=== PATIENT | male | born 1990 | race Caucasian/White ===

== ENCOUNTER 2017-12-20 13:53 | Emergency (ER) | payer OTHER ==
--- NOTE | 2017-12-20 14:32 | RAD REPORT ---
EXAM DESCRIPTION: Neema Single View12/20/2017 2:04 pm CLINICAL HISTORY: Chest pain COMPARISON: September 2016 FINDINGS: The lungs appear clear of acute infiltrate. The heart is normal size IMPRESSION: No acute abnormalities displayed
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
== END 2017-12-20 16:24 | disposition home or self-care (01) ==
LOC: ER 13:53
DX: S09.90XA Unspecified injury of head, initial encounter (principal); V48.5XXA Car driver injured in noncollision transport accident in traffic accident, initial encounter; F17.210 Nicotine dependence, cigarettes, uncomplicated; Z88.8 Allergy status to other drugs, medicaments and biological substances; I10 Essential (primary) hypertension
CPT/HCPCS: 70450; 71045; 72125; 99285

== ENCOUNTER 2021-04-14 13:05 | Emergency (ER) | payer SELFPAY ==
[2021-04-14] MEDS ORDERED: NA CHLORIDE 0.9% 1,000 ML ONE (13:47)
[2021-04-14 14:08] LABS: Absolute Lymphocytes (CBC) 0.6 K/uL (0.7-4.9); Basophils % 0.3 % (0-1.3); Hematocrit 40.6 % (39.6-49.0); Lymphocytes % 6.1 % (15.3-44.8); MPV 7.2 fL (7.6-11.3); RBC Red Blood Cell Count 4.68 M/uL (4.33-5.43)
--- NOTE | 2021-04-14 14:13 | RAD REPORT ---
EXAM DESCRIPTION: CT - Head Brain Wo Cont - 04/14/2021 1:57 pm CLINICAL HISTORY: Left arm weakness COMPARISON: None TECHNIQUE: Computed axial tomography of the head was obtained. IV contrast was not requested. All CT scans are performed using dose optimization technique as appropriate and may include automated exposure control or mA/KV adjustment according to patient size. FINDINGS: An intracranial bleed is not seen . The ventricles are normal in caliber. No extra-axial fluid collection is noted. Fluid within the sinuses/ mastoids is not seen. IMPRESSION: No acute intracranial abnormality is seen. If patient's symptoms persist MRI of the bra in would be recommended.
[2021-04-14 14:18] LABS: Albumin 3.2 g/dL (3.4-5.0); Bilirubin Direct 0.1 mg/dL (0-0.2); Bilirubin Total 0.3 mg/dL (0.2-1.0); Protein, Total 6.7 g/dL (6.4-8.2)
[2021-04-14 14:53] LABS: Blood Morphology Comment NOT SEEN (NOT SEEN); Platelet Estimate ADEQ
--- NOTE | 2021-04-14 15:57 | RAD REPORT ---
EXAM DESCRIPTION: USExtremity Venous Uni Ltd04/14/2021 3:07 pm CLINICAL HISTORY: Left arm swelling COMPARISON: None FINDINGS: The left internal jugular, left subclavian, left cephalic, left axillary, left brachial, l eft basilic, left ulnar and left radial veins are generally compressible and demonstrate augmentation . Doppler demonstrates good flow. IMPRESSION: No evidence of thrombus within the veins of the left upper extremity
--- NOTE | 2021-04-14 16:04 | ER ---
Nurse's Notes [facility] Name: Angelo Eden Age: 31 yrs Sex: Male : 1990 Arrival Date: 04/14/2021 Time: 13:07 Bed 3 Private MD: Diagnosis: Pain in left arm;Drug abuse counseling and surveillance Presentation: 04/14 13:10 Chief complaint: Patient states: i did H (Heroin) last night. i woke up a little over tw2 an hour ago and i thought my LEFT arm was asleep. but it will not wake up and i have no motor control over it. Coronavirus screen: At this time, the client does not indicate any symptoms associated with coronavirus-19. Ebola Screen: Patient denies travel to an Ebola-affected area in the 21 days before illness onset. Initial Sepsis Screen: Does the patient meet any 2 criteria? HR > 90 bpm. No. Patient's initial sepsis screen is negative. Does the patient have a suspected source of infection? No. Patient's initial sepsis screen is negative. Risk Assessment: Do you want to hurt yourself or someone else? Patient reports no desire to harm self or others. Onset of symptoms was April 14, 2021. 13:10 Method Of Arrival: Wheelchair tw2 13:10 Acuity: CANDACE 3 tw2 Triage Assessment: 13:20 General: Appears unkempt, Behavior is calm, cooperative. General: Smells of feces. pt tw2 has soiled himself.. Pain: Denies pain. Neuro: Reports numbness weakness in left arm since over an hour ago. Historical: - Allergies: 13:21 Ceclor; tw2 - Home Meds: 13:21 None [Active]; tw2 - PMHx: 13:21 Hypertension; tw2 - Immunization history:: Client reports having NOT received the Covid vaccine. - Social history:: Smoking status: Patient denies any tobacco usage or history of. Patient uses street drugs, heroin. Screenin:45 Patient has been NPO before screening. The patient is alert, able to follow commands. jd3 The patient does not exhibit slurred or garbled speech The patient is not exhibiting difficulty speaking. The patient does not exhibit difficulty understanding words. The patient is able to swallow own secretions with no drooling or need for suction. Patient tolerated one teaspoon of water. No drooling, immediate coughing, gurgling, or clearing of the throat was noted. The patient tolerated 90mL of water. No drooling, immediate coughing, gurgling, or clearing of the throat was noted. The patient passed the bedside swallow screening. Oral medications may be given as ordered. Contact Physician for further diet orders. Provider notified of bedside swallow screening results: Sheila Haines MD. 13:47 Abuse screen: Denies threats or abuse. Nutritional screening: No deficits noted. jd3 Tuberculosis screening: No symptoms or risk factors identified. Fall Risk Ambulatory Aid- None/Bed Rest/Nurse Assist (0 pts). Gait- Normal/Bed Rest/Wheelchair (0 pts) Mental Status- Oriented to own ability (0 pts). Total Buck Fall Scale indicates No Risk (0-24 pts). 13:49 VAN Screening: Arm Drift: Minor drift. Visual Disturbance: No visual disturbance noted. jd3 Aphasia: No aphasia noted. Neglect: No neglect noted. Assessment: 13:39 General: Reports "I woke up and I had no motor control of my left hand and little jd3 control of my left arm. my left leg feels like it doesn't work as well. I did some drugs last night and I don't know what happened before falling asleep.". Pain: Complains of pain in left shoulder Quality of pain is described as aching, tender. Neuro: Level of Consciousness is awake, alert, obeys commands, Oriented to person, place, time, situation, Breakdown Person are weak on left Weakness in left hand(s) arm(s) Speech is normal, Facial symmetry appears normal, Pupils are PERRLA, Reports weakness in left hand, left arm and left leg. Cardiovascular: Denies chest pain, Capillary refill < 3 seconds Patient's skin is warm and dry. Rhythm is sinus tachycardia. Respiratory: Airway is patent Respiratory effort is even, unlabored, Respiratory pattern is regular, symmetrical, Denies cough, shortness of breath. GI: No signs and/or symptoms were reported involving the gastrointestinal system. : No signs and/or symptoms were reported regarding the genitourinary system. EENT: No signs and/or symptoms were reported regarding the EENT system. Derm: Skin is intact, Skin is dry, Skin is normal, Skin temperature is warm. Musculoskeletal: Circulation, motion, and sensation intact. Range of motion: limited in left arm Swelling present in left hand. 14:50 Reassessment: No changes from previously documented assessment. Patient and/or family jd3 updated on plan of care and expected duration. Pain level reassessed. Patient is alert, oriented x 3, equal unlabored respirations, skin warm/dry/pink. 16:03 Reassessment: Patient appears in no apparent distress at this time. No changes from jd3 previously documented assessment. Patient and/or family updated on plan of care and expected duration. Pain level reassessed. Patient is alert, oriented x 3, equal unlabored respirations, skin warm/dry/pink. pt reports continued lac of motor control of left arm/hand. 16:20 Reassessment: Patient appears in no apparent distress at this time. Patient and/or jd3 family updated on plan of care and expected duration. Pain level reassessed. Patient is alert, oriented x 3, equal unlabored respirations, skin warm/dry/pink. pt reported understanding of discharge instructions. assisted pt to lobby with wheelchair to wait for ride. Vital Signs: 13:10 BP 129 / 83; Pulse 120; Resp 17; Temp 99.3(TE); Pulse Ox 92% on R/A; Weight 74.84 kg tw2 (R); Height 5 ft. 10 in. (177.80 cm); 14:50 BP 125 / 82; Pulse 105; Resp 15 S; Pulse Ox 97% on R/A; jd3 16:04 BP 120 / 78; Pulse 111; Resp 19 S; Pulse Ox 99% on R/A; jd3 13:10 Body Mass Index 23.67 (74.84 kg, 177.80 cm) tw2 13:10 pt placed on 2L nc will continue to monitor tw2 NIH Stroke Scale Scores: 13:45 NIHSS Score: 2 jd3 ED Course: 13:07 Patient arrived in ED. mr 13:20 Triage completed. tw2 13:20 Arm band placed on. tw2 13:23 Sheila Haines MD is Attending Physician. sp3 13:25 Cleveland Wells RN is Primary Nurse. jd3 13:47 Patient has correct armband on for positive identification. Placed in gown. Bed in low jd3 position. Call light in reach. Side rails up X2. desk monitor on. Pulse ox on. NIBP on. Warm blanket given. 13:52 Inserted saline lock: 20 gauge in left antecubital area, using aseptic technique. Blood jd3 collected. 13:57 CT Head Brain wo Cont In Process Unspecified. EDMS 15:07 US Extremity Venous Unilateral Ltd In Process Unspecified. EDMS 16:20 No provider procedures requiring assistance completed. IV discontinued, intact, jd3 bleeding controlled, No redness/swelling at site. Pressure dressing applied. Administered Medications: 13:51 Drug: NS 0.9% 1000 ml Route: IV; Rate: 1 bolus; Site: left antecubital; jd3 14:50 Follow up: Response: No adverse reaction; IV Status: Completed infusion; IV Intake: jd3 1000ml Intake: 14:50 IV: 1000ml; Total: 1000ml. jd3 Outcome: 16:04 Discharge ordered by . sp3 16:21 Patient left the ED. jd3 17:15 Discharged to home via wheelchair, with friend. jd3 17:15 Condition: stable 17:15 Discharge instructions given to patient, Instructed on discharge instructions, follow up and referral plans. Demonstrated understanding of instructions, follow-up care. NIH Stroke Scale - NIH Stroke Score Date: 04/14/2021 Time: 13:45 Total Score = 2 1a. Level of Consciousness (LOC) - 0(Alert) 1b. Level of Consciousness (LOC) (Month \\T\\ Age) - 0(Both) 1c. LOC Commands (Open \\T\\ Closes Eyes/Airfield Defence Guard) - 0(Both) 2. Best Gaze (Lateral Gaze Paresis) - 0(Normal) 3. Visual Field Loss - 0(No visual loss) 4. Facial Palsy - 0(Normal) 5a. Left Arm: Motor (10-second hold) - 1(Drift) 5b. Right Arm: Motor (10-second hold) - 0(No drift) 6a. Left Leg: Motor (5-second hold - always test supine) - 0(No drift) 6b. Right Leg: Motor (5-second hold - always test supine) - 0(No drift) 7. Limb Ataxia (finger/nose \\T\\ heel/zazueta - test with eyes open) - 1(Present in one limb) 8. Sensory Loss (pinprick arms/legs/face) - 0(Normal) 9. Best Language: Aphasia (description/naming/reading) - 0(No aphasia) 10. Dysarthria (speech clarity - read or repeat words) - 0(Normal) 11. Extinction and Inattention (visual/tactile/auditory/spatial/personal) - 0(No abnormality) Initials: jd3 Signatures: Dispatcher [employer] LUPIS RauschLucia tavarez mr Cookie Watts RN RN tw2 Cleveland Wells RN RN jd3 Sheila Haines MD MD sp3
--- NOTE | 2021-04-14 16:05 | EDPHYS ---
Physician Documentation [facility] Name: Angelo Eden Age: 31 yrs Sex: Male : 1990 Arrival Date: 04/14/2021 Time: 13:07 Bed 3 Private MD: ED Physician Sheila Haines HPI: 04/14 14:48 This 31 yrs old Male presents to ER via Wheelchair with complaints of Left sp3 arm and left Leg weakness. 14:48 31-year-old male with no significant past medical history presents with left arm sp3 weakness and pain secondary to "falling asleep on it" after doing inhaled heroin last night. Patient denies injecting himself in any capacity now or prior. Patient denies any other drug use. This time he denies headache, neck pain, chest pain, shortness of breath, back pain, abdominal pain, nausea, vomiting, diarrhea, other neuro symptoms other than the pain and weakness in his left arm, syncope, any other symptoms on ROS. Remainder of ROS negative.. Historical: - Allergies: 13:21 Ceclor; tw2 - Home Meds: 13:21 None [Active]; tw2 - PMHx: 13:21 Hypertension; tw2 - Immunization history:: Client reports having NOT received the Covid vaccine. - Social history:: Smoking status: Patient denies any tobacco usage or history of. Patient uses street drugs, heroin. ROS: 14:49 Constitutional: Negative for fever, chills, and weight loss, Eyes: Negative for injury, sp3 pain, redness, and discharge, ENT: Negative for injury, pain, and discharge, Neck: Negative for injury, pain, and swelling, Cardiovascular: Negative for chest pain, palpitations, and edema, Respiratory: Negative for shortness of breath, cough, wheezing, and pleuritic chest pain, Abdomen/GI: Negative for abdominal pain, nausea, vomiting, diarrhea, and constipation, Back: Negative for injury and pain, Skin: Negative for injury, rash, and discoloration, Psych: Negative for depression, anxiety, suicide ideation, homicidal ideation, and hallucinations, Allergy/Immunology: Negative for hives, rash, and allergies, Endocrine: Negative for neck swelling, polydipsia, polyuria, polyphagia, and marked weight changes, Hematologic/Lymphatic: Negative for swollen nodes, abnormal bleeding, and unusual bruising. 14:49 Neuro: Positive for Left arm weakness. 14:49 All other systems are negative. Exam: 14:50 Constitutional: This is a well developed, well nourished patient who is awake, alert, sp3 and in no acute distress. Head/Face: Normocephalic, atraumatic. Eyes: Pupils equal round and reactive to light, extra-ocular motions intact. Lids and lashes normal. Conjunctiva and sclera are non-icteric and not injected. Cornea within normal limits. Periorbital areas with no swelling, redness, or edema. ENT: Nares patent. No nasal discharge, no septal abnormalities noted. External auditory canals are clear. Oropharynx with no redness, swelling, or masses, exudates, or evidence of obstruction, uvula midline. Mucous membranes moist. Neck: Trachea midline, no thyromegaly or masses palpated, and no cervical lymphadenopathy. Supple, full range of motion without nuchal rigidity, or vertebral point tenderness. No Meningismus. Chest/axilla: Normal chest wall appearance and motion. Nontender with no deformity. No lesions are appreciated. Cardiovascular: Regular rate and rhythm with a normal S1 and S2. No gallops, murmurs, or rubs. Normal PMI, no JVD. No pulse deficits. Respiratory: Lungs have equal breath sounds bilaterally, clear to auscultation and percussion. No rales, rhonchi or wheezes noted. No increased work of breathing, no retractions or nasal flaring. Abdomen/GI: Soft, non-tender, with normal bowel sounds. No distension or tympany. No guarding or rebound. No evidence of tenderness throughout. Skin: Warm, dry with normal turgor. Normal color with no rashes, no lesions, and no evidence of cellulitis. MS/ Extremity: Pulses equal, no cyanosis. Neurovascular intact. Full, normal range of motion. Psych: Awake, alert, with orientation to person, place and time. Behavior, mood, and affect are within normal limits. 14:50 Neuro: Patient has 4/5 strength which is improving in his left upper extremity. Patient can make an okay sign and has normal proprioception, sensory, pain and temperature pathways. It is painful to move however no definite hematoma, ecchymoses, or other injury can be identified.. Vital Signs: 13:10 BP 129 / 83; Pulse 120; Resp 17; Temp 99.3(TE); Pulse Ox 92% on R/A; Weight 74.84 kg tw2 (R); Height 5 ft. 10 in. (177.80 cm); 14:50 BP 125 / 82; Pulse 105; Resp 15 S; Pulse Ox 97% on R/A; jd3 16:04 BP 120 / 78; Pulse 111; Resp 19 S; Pulse Ox 99% on R/A; jd3 13:10 Body Mass Index 23.67 (74.84 kg, 177.80 cm) tw2 13:10 pt placed on 2L nc will continue to monitor tw2 NIH Stroke Scale Scores: 13:45 NIHSS Score: 2 jd3 MDM: 13:29 Patient medically screened. sp3 14:51 Data reviewed: vital signs, nurses notes. ED course: Will obtain CT scan of the head, sp3 ultrasound of left upper extremity secondary to mild distal swelling which is improving, and general lab work-up. I met highly suspicious of CVA, serious trauma, or vascular compromise. Patient does not injected therefore low concern for septicemia or embolic event. If work-up is negative will discharge home to PCP and continue drug rehabilitation support. Patient does have elevated liver function tests and likely has underlying hepatitis. Creatinine is mildly elevated along with BUN indicating prerenal azotemia. We will hydrate with IV fluids prior to discharge assuming rest of the work-up is negative.. 16:03 ED course: Work-up is negative. Will discharge patient home at this time.. sp3 04/14 13:45 Order name: Basic Metabolic Panel; Complete Time: 14:53 sp3 04/14 13:45 Order name: CBC with Diff; Complete Time: 15:28 sp3 04/14 13:45 Order name: Hepatic Function; Complete Time: 14:53 sp3 04/14 13:45 Order name: Lipase; Complete Time: 14:53 sp3 04/14 13:45 Order name: US Extremity Venous Unilateral Ltd; Complete Time: 16:03 sp3 04/14 14:15 Order name: Manual Differential; Complete Time: 15:28 EDMS 04/14 13:45 Order name: IV Saline Lock; Complete Time: 13:47 sp3 04/14 13:45 Order name: Labs collected and sent; Complete Time: 13:47 sp3 04/14 13:45 Order name: CT Head Brain wo Cont; Complete Time: 14:18 sp3 Administered Medications: 13:51 Drug: NS 0.9% 1000 ml Route: IV; Rate: 1 bolus; Site: left antecubital; jd3 14:50 Follow up: Response: No adverse reaction; IV Status: Completed infusion; IV Intake: jd3 1000ml Disposition Summary: 04/14/21 16:04 Discharge Ordered Location: Home sp3 Condition: Stable sp3 Diagnosis - Pain in left arm sp3 - Drug abuse counseling and surveillance sp3 Followup: sp3 - With: Private Physician - When: - Reason: Continuance of care Discharge Instructions: - Discharge Summary Sheet sp3 - Pain Without a Known Cause sp3 - Illegal Drug Use Information, Adult sp3 Forms: - Medication Reconciliation Form sp3 - Thank You Letter sp3 - Antibiotic Education sp3 - Prescription Opioid Use sp3 NIH Stroke Scale - NIH Stroke Score Date: 04/14/2021 Time: 13:45 Total Score = 2 1a. Level of Consciousness (LOC) - 0(Alert) 1b. Level of Consciousness (LOC) (Month \\T\\ Age) - 0(Both) 1c. LOC Commands (Open \\T\\ Closes Eyes/Product Safety Tester) - 0(Both) 2. Best Gaze (Lateral Gaze Paresis) - 0(Normal) 3. Visual Field Loss - 0(No visual loss) 4. Facial Palsy - 0(Normal) 5a. Left Arm: Motor (10-second hold) - 1(Drift) 5b. Right Arm: Motor (10-second hold) - 0(No drift) 6a. Left Leg: Motor (5-second hold - always test supine) - 0(No drift) 6b. Right Leg: Motor (5-second hold - always test supine) - 0(No drift) 7. Limb Ataxia (finger/nose \\T\\ heel/zazueta - test with eyes open) - 1(Present in one limb) 8. Sensory Loss (pinprick arms/legs/face) - 0(Normal) 9. Best Language: Aphasia (description/naming/reading) - 0(No aphasia) 10. Dysarthria (speech clarity - read or repeat words) - 0(Normal) 11. Extinction and Inattention (visual/tactile/auditory/spatial/personal) - 0(No abnormality) Initials: russ Signatures: Dispatcher [employer] EDMS Cookie Watts RN RN tw2 Cleveland Wells RN RN jd3 Sheila Haines MD MD sp3 Corrections: (The following items were deleted from the chart) 14:54 14:51 ED course: Will obtain CT scan of the head, ultrasound of left upper sp3 extremity secondary to mild distal swelling which is improving, and general lab work-up. I met highly suspicious of CVA, serious trauma, or vascular compromise. Patient does not injected therefore low concern for septicemia or embolic event. If work-up is negative will discharge home to PCP and continue drug rehabilitation support.. sp3
[2021-04-14 16:44] VITALS: TEMP 99.3
[2021-04-14 16:47] VITALS: BP 120/78; O2SAT 99
--- NOTE | 2021-04-15 18:27 | EKG ---
Test Date: 2021-04-14 Test Time: 13:38:36 Public Relations Intern: WILLIS MEASUREMENT RESULTS: Intervals: Rate: 117 TN: 124 QRSD: 94 QT: 342 QTc: 477 Aragon: P: 51 TN: 124 QRS: 62 T: 31 INTERPRETIVE STATEMENTS: Sinus tachycardia Otherwise normal ECG Compared to ECG 09/15/2013 23:28:55 Sinus rhythm no longer present Electronically Signed On 04-15-21 18:23:45 SUPERVISORY EXAMINER by Walker Davis
== END 2021-04-14 16:21 | disposition home or self-care (01) ==
LOC: ER 13:05
DX: M79.602 Pain in left arm (principal); Z71.51 Drug abuse counseling and surveillance of drug abuser
CPT/HCPCS: 36415; 70450; 80048; 80076; 83690; 85025; 93005; 93971; 96360; 99284; J7030

== ENCOUNTER 2021-04-16 20:26 | Emergency (ER) | payer SELFPAY ==
[2021-04-16 21:17] LABS: Absolute Lymphocytes (CBC) 1.2 K/uL (0.7-4.9); Basophils % 0.3 % (0-1.3); Hematocrit 37.6 % (39.6-49.0); Lymphocytes % 12.1 % (15.3-44.8); MPV 6.9 fL (7.6-11.3); RBC Red Blood Cell Count 4.46 M/uL (4.33-5.43)
[2021-04-16 21:22] LABS: Protime INR 0.99
[2021-04-16 21:22] LABS: Urine Blood Trace-intact (Negative); Urine Glucose Negative (Negative); Urine Protein Negative (Negative); Urine Specific Gravity 1.015 (1.005-1.030)
[2021-04-16 21:50] LABS: Barbiturates NEGATIVE (NEGATIVE); Benzodiazepines NEGATIVE (NEGATIVE); Cocaine NEGATIVE (NEGATIVE); METHAMPHETAM NEGATIVE (NEGATIVE); Methadone NEGATIVE (NEGATIVE); Opiates NEGATIVE (NEGATIVE); Phencyclidine NEGATIVE (NEGATIVE); THC Cannibis NEGATIVE (NEGATIVE)
[2021-04-16 22:15] LABS: ALT/SGPT 160 U/L (12-78); AST/SGOT 90 U/L (15-37); Alkaline Phosphatase 80 U/L (45-117); BUN Blood Urea Nitrogen 8 mg/dL (7-18); Bicarbonate 30 mmol/L (21-32); Bilirubin Direct 0.1 mg/dL (0-0.2); Bilirubin Total 0.5 mg/dL (0.2-1.0); Glucose Level 106 mg/dL (74-106); Potassium 3.2 mmol/L (3.5-5.1); Protein, Total 7.4 g/dL (6.4-8.2); Sodium Level 142 mmol/L (136-145)
--- NOTE | 2021-04-17 11:20 | EKG ---
Test Date: 2021-04-16 Test Time: 21:33:55 Solar Energy Consultant And Designer: QUETA MEASUREMENT RESULTS: Intervals: Rate: 85 MN: 128 QRSD: 92 QT: 368 QTc: 437 Martin: P: 52 MN: 128 QRS: 61 T: 70 INTERPRETIVE STATEMENTS: Normal sinus rhythm Normal ECG Compared to ECG 04/14/2021 13:38:36 Sinus tachycardia no longer present Electronically Signed On 04-17-21 11:20:01 DOUGH CUTTING MACHINE OPERATOR by Walker Davis
--- NOTE | 2021-04-17 17:57 | ER ---
Nurse's Notes [facility] Name: Angelo Eden Age: 31 yrs Sex: Male : 1990 Arrival Date: 04/16/2021 Time: 20:28 Bed 17 Private MD: Diagnosis: Suicidal ideations Presentation: 04/16 20:29 Chief complaint: EMS states: they were toned out for report of pt with suicidal bb ideations needing help. Coronavirus screen: At this time, the client does not indicate any symptoms associated with coronavirus-19. Ebola Screen: No symptoms or risks identified at this time. Initial Sepsis Screen: Does the patient meet any 2 criteria? No. Patient's initial sepsis screen is negative. Does the patient have a suspected source of infection? No. Patient's initial sepsis screen is negative. Risk Assessment: Do you want to hurt yourself or someone else? Patient reports desire/thoughts of hurting themselves or someone else. Provider notified. Onset of symptoms was April 16, 2021. 20:29 Method Of Arrival: EMS: [facility] bb 20:29 Acuity: CANDACE 2 bb 20:32 Note pt inhaled heroin about a week ago. bb 20:33 Note pt's father Hood Eden [phone]. bb Triage Assessment: 20:30 General: Appears in no apparent distress. Behavior is calm, cooperative. Pain: bb Complains of pain in left arm Pain currently is 3 out of 10 on a pain scale. Neuro: Level of Consciousness is awake, alert, obeys commands, Oriented to person, place, time, situation. Cardiovascular: Capillary refill < 3 seconds Patient's skin is warm and dry. Respiratory: Airway is patent Respiratory effort is even, unlabored, Respiratory pattern is regular. GI: No signs and/or symptoms were reported involving the gastrointestinal system. Derm: Skin is pink, warm \\T\\ dry. Musculoskeletal: Reports weakness in left arm pain in left arm. Historical: - Allergies: 20:30 Ceclor; bb - Home Meds: 20:30 Unable to obtain [Active]; bb - PMHx: 20:30 Hypertension; bb - Immunization history:: Adult Immunizations up to date, Client reports having NOT received the Covid vaccine. - Social history:: Smoking status: Patient/guardian denies using tobacco, Stopped _ months ago [address], heroin. Screenin:38 Abuse screen: Denies threats or abuse. Nutritional screening: No deficits noted. sl2 Tuberculosis screening: No symptoms or risk factors identified. Fall Risk None identified. Assessment: 20:38 Reassessment: Hypertensive; reports not taking antihypertensive meds x 11 months; sl2 reports being depressed and wanting "someone to just come up and shoot me"; denies having plan to harm self; reports being saddened by not being able to see 5 yr old son; reports inability to use left arm with weak child development consultant left hand x 1 week denies injury to left arm/left shoulder; reports soreness beneath left axilla along left lateral upper rib area; no bruising noted. 20:38 General: Appears Appears saddened; reports h/o depression.. Pain: Complains of pain in cc4 left arm weakness with soreness beneath left axilla of left lateral upper rib area pain. Pain does not radiate. Pain currently is 2 out of 10 on a pain scale. at worst was 5 out of 10 on a pain scale. Quality of pain is described as aching, soreness with weakness noted LUE. Neuro: No deficits noted. Level of Consciousness is awake, alert, obeys commands, Oriented to person, place, time, situation, Medical Reception are weak on left Weakness in left hand(s) arm(s) Reports depression/sadness. Cardiovascular: No deficits noted. Denies chest pain, Rhythm is sinus rhythm. Respiratory: No deficits noted. Airway is patent Breath sounds are clear bilaterally. Respiratory: GI: No deficits noted. Abdomen is flat, non-distended, Bowel sounds present X 4 quads. : No signs and/or symptoms were reported regarding the genitourinary system. EENT: No deficits noted. Eyes clear. Nares are clear Oral mucosa is dry. Derm: No deficits noted. Skin is intact. Musculoskeletal: Capillary refill < 3 seconds, Range of motion: limited in left arm Swelling present in left hand. 20:40 Reassessment: # 20 g angiocath inserted right AC x 1 attempt with blood drawn \\T\\ sent to [facility], judith. well; converted into saline lock; voided clear yellow urine via urinal with urine specimen collected \\T\\ sent to lab. 20:45 Reassessment: Patient appears in no apparent distress at this time. EKG done; changed cc4 from clothing into hospital gown; non-skid socks applied to feet; requesting to eat; turkey sandwich, jello and applesauce offered \\T\\ eating with no nausea vomiting; 95% intake noted of food offered; voices no complaints; cell phone; shoes \\T\\ clothing given to security to secure; all cords \\T\\ equipment removed from room. 22:30 Reassessment: Patient appears in no apparent distress at this time. Sleeping with door cc4 open \\T\\ visualized. 04/17 00:05 Reassessment: Patient appears in no apparent distress at this time. Awakened from sleep cc4 \\T\\ ambulatory to telephone speaking to [facility]; voices no complaints. 02:00 Reassessment: Patient appears in no apparent distress at this time. Sleeping with door cc4 open for visualization; no changes noted; stable. 04:00 Reassessment: Patient appears in no apparent distress at this time. Sleeping with door cc4 open for visualization. 06:00 Reassessment: Patient appears in no apparent distress at this time. Sleeping with door cc4 open \\T\\ visualized. 06:55 Reassessment: Report given to FLORINDA Goodman. cc4 12:20 Reassessment: 1:1 sitter present for patient safety, patient pleasant and cooperative, sl2 has good appetite and eats 100% of his meals. 18:02 Reassessment: Patient states that he is voluntarily here and would like to leave now, sl2 Patient has removed his IV access from his arm. This RN has spoken to patient and told him that the ER physician will be notified to come and speak with him. Patient has verbalized agreement. 18:11 Reassessment: Dr Lares present at bedside to speak with patient. sl2 18:14 Reassessment: Patient has agreed to stay "if a more comfortable bed can be provided" sl2 Per Dr Lares, patient is a high risk suicidal ideation and as such if he attempts to leave the police should be notified immediately. 18:16 Reassessment: Patient asleep, resting comfortably - shows no signs of distress or sl2 discomfort. Continuous monitoring in progress for patient safety. 18:29 Reassessment: Patient provided with hospital bed - ER stretcher removed. sl2 18:36 Reassessment: Patient verbalized that he is more comfortable, now resting quietly. sl2 19:31 Reassessment: Change of shift nursing report given to FLORINDA Elizabeth. 2 19:50 Reassessment: Patient appears in no apparent distress at this time. resting in bed with cc4 sleep noted; arouses easily to verbal stimuli; voices no complaints. General: Appears in no apparent distress. comfortable, Behavior is calm, cooperative. Pain: Denies pain. Neuro: No deficits noted. Level of Consciousness is awake, alert, obeys commands, Oriented to person, place, time, situation. Respiratory: No deficits noted. Airway is patent Respiratory effort is even, unlabored, VSS. 22:00 Reassessment: Patient appears in no apparent distress at this time. Resting quietly in cc4 bed \\T\\ appears to be sleeping; sitter sitting \\T\\ door of room observing patient for safety. 04/18 00:00 Reassessment: Patient appears in no apparent distress at this time. sleeping; no cc4 changes noted in condition; sitter remains \\T\\ enterance of door observing patient for safety. 02:00 Reassessment: Patient appears in no apparent distress at this time. Sleeping; no cc4 changes noted. 04:50 Reassessment: agitated; states, "I'm leaving here, it's boring \\T\\ I can't sleep"; cc4 instructed on need to stay until a facility approves transfer; states, "Well you need to give me something for rest"; Dr. Haines informed with new order received; Xanax 0.25 mg given po. 04:50 General: Appears agitated.. Behavior is agitated, Talking loudly \\T\\ attempting to close cc4 drapes of room; drapes reopened with instructions to leave drapes open; no v/u.. Neuro: No deficits noted. Level of Consciousness is awake, alert, agitated.. Oriented to person, place, time, situation. Respiratory: Airway is patent. Musculoskeletal: Capillary refill < 3 seconds, Range of motion: limited in left hand and left arm. 06:00 Reassessment: Patient appears in no apparent distress at this time. Sleeping; no cc4 additional outburst/agitation exhibited; monitored per sitter. 07:36 Reassessment: Called [facility] who states that patient remains on a wait ss list and they are unsure of how long it will be before they might get a bed. Also spoke with [facility] which the intake nurse stated that they just did shift change and to call back in about 1 hour or so. 09:25 Reassessment: Report given to FLORINDA Chavez at [facility]. 09:32 Reassessment: Patient asleep, resting quietly, shows no signs of distress or sl2 discomfort. Continuous 1:1 monitoring in progress for patient safety. 09:44 Reassessment: Administrative approval given by Kathy at [facility]. ss Psych: 04/16 23:17 [place] Suicide Severity Screening: "In the past month, have you actually had any cc4 thoughts of killing yourself?". 04/18 07:10 [place] Suicide Severity Screening: In the past month, have you wished you were sl2 or wished you could go to sleep and not wake up? Patient responds "yes." "In the past month, have you actually had any thoughts of killing yourself?" Patient responds "no." "In your lifetime, have you ever done anything, started to do anything, or prepared to do anything to end your life?" Patient responds "no.". 07:10 Subjective: Patient's mood is sad, Delusions are denied, Hallucinations are denied sl2 Having thoughts of wishing that someone would kill him - denies having a plan to kill himself. Objective: Patient is cooperative, Speech is normal, Affect is flat, Patient has mutilated themselves by No evidence of self mutilation noted - denies act of self mutilation. Interventions: Removed personal items and placed in bag. Patient placed in hospital gown. Searched person for dangerous items. Urine collected and sent for urine drug test. Belonging list filled out. Patient reassessed during use of restraints. Patient is physically safe. Safety Checks: Door is open. No visitors are present at this time. Patient uses heroin. Commitment: Patient will be a voluntary commitment. Vital Signs: 04/16 20:29 Weight 74.84 kg (R); Height 5 ft. 10 in. (177.80 cm) (R); Pain 3/10; bb 20:38 BP 159 / 110; Pulse 87; Resp 20; Temp 98.2(O); Pulse Ox 98% on R/A; Weight 74.84 kg; sl2 Height 5 ft. 10 in. (177.80 cm); 20:45 BP 150 / 102; Pulse 89; Resp 18; Pulse Ox 98% on R/A; cc4 04/17 08:25 BP 138 / 86; Pulse 85; Resp 18; Temp 98.4(O); Pulse Ox 99% on R/A; ss 17:46 BP 164 / 94; Pulse 87; Resp 17; Temp 98.2(O); Pulse Ox 100% on R/A; mh5 19:50 BP 149 / 72; Pulse 86; Resp 18; Temp 98.6(O); Pulse Ox 100% on R/A; cc4 04/18 07:46 BP 159 / 80; Pulse 86; Resp 16; Temp 97.6; Pulse Ox 100% on R/A; jt3 04/16 20:38 Body Mass Index 23.67 (74.84 kg, 177.80 cm) sl2 ED Course: 04/16 20:28 Patient arrived in ED. bb 20:30 Triage completed. bb 20:30 Arm band placed on Patient placed in an exam room, on a stretcher, on suicidal bb precautions. 20:35 Maxine Sotelo, FLORINDA is Primary Nurse. sl2 20:35 Sheila Haines MD is Attending Physician. sp3 20:38 shoddy mill worker on. Pulse ox on. NIBP on. sl2 20:38 Patient has correct armband on for positive identification. Placed in gown. Bed in low cc4 position. Call light in reach. Side rails up X 1. Patient is placed in psych hold. 21:00 Urine collected: clean catch specimen, clear. bb 21:06 Inserted saline lock: 20 gauge in right antecubital area, using aseptic technique. ld1 Blood collected. 22:32 Acetaminophen Sent. cc4 22:32 Basic Metabolic Panel Sent. cc4 22:32 CBC with Diff Sent. cc4 04/17 00:05 contacted [facility] Crisis Line to have a screener evaluate the patient. mw2 01:15 SARS-COV-2 RT PCR Sent. cc4 01:15 COVID-19 (Coronavirus) Document "Date of Onset" if Symptomatic Sent. cc4 03:06 faxed the patient clinicals to all available psych facilities. mw2 07:12 Chito Adhikari PA is PHCP. jr8 07:23 spoke with Kathy at [facility]. pt is on waiting list for [facility]. bd 10:38 Safety checks: Items removed: yes. Door open/sign placed on door: yes. Family/friend mh5 present: no. Sitter present: Yes. 10:40 Sitter at bedside. mh5 17:55 Attending Physician role handed off by Sheila Haines MD ma2 17:55 Nadya Lares MD is Attending Physician. ma2 19:07 Nadya Lares MD is Attending Physician. ma2 19:07 Attending Physician role handed off by Nadya Lares MD sp3 19:07 Sheila Haines MD is Attending Physician. sp3 19:07 Sheila Haines MD is Attending Physician. sp3 04/18 00:24 Tried to initiate transfer at [facility] with Mirtha. Was informed they were at tt3 capacity for psychiatric beds at this time. 09:14 connected Kathy from [facility] with Colleen Gordon for patient transfer eb consultation. 09:[address] Kidd the psychiatrist aviation electronics technician for [facility] with Dr. Lares for patient eb transfer consultation. 09:44 administrative approval given to Colleen Gordon/ Administrative approval given by Dougie Hazel/ patient has been accepted to [facility]. Dr. Macario has accepted the patient in transfer/. 10:21 Attending Physician role handed off by Sheila Haines MD ma2 10:21 Nadya Lares MD is Attending Physician. ma2 11:26 No provider procedures requiring assistance completed. IV discontinued, intact, sl2 bleeding controlled, IV discontinued by patient - patient removed his IV. Administered Medications: 04:50 Drug: XANax (alprazolam) Tablet 0.25 mg Route: PO; cc4 06:00 Follow up: Response: No adverse reaction; Marked relief of symptoms cc4 Outcome: 04/17 17:56 ER care complete, transfer ordered by . ma2 04/18 11:26 Discharged to Psychiatric facility sl2 Discharged to Discharged to Discharged to psychiatric facility via [facility] for transport Condition: stable Discharge instructions given to patient, Instructed on follow up and referral plans. the need for transfer, Demonstrated understanding of instructions, follow-up care. 11:35 Patient left the ED. sl2 Signatures: Karen Marti Brenda, RN RN bb Colleen Olson RN RN ss Chito Adhikari PA PA [facility] Nadya Lares MD MD ma2 Marisol Rose mw2 [facility] [place] tt3 Noreen Gill RN RN ld1 Sheila Hainse MD MD sp3 Clara Stephens RN RN cc4 Maxine Sotelo RN RN sl2 Xavier Virgen RN RN jt3 Corrections: (The following items were deleted from the chart) 04/17 03:09 03:00 faxed the patient clinicals to all available psych facilities 2 mw2 06:10 05:45 Reassessment: Patient appears in no apparent distress at this time. Sleeping with cc4 door open \\T\\ visualized. cc4
--- NOTE | 2021-04-17 17:57 | EDPHYS ---
Physician Documentation [facility] Name: Angelo Eden Age: 31 yrs Sex: Male : 1990 Arrival Date: 04/16/2021 Time: 20:28 Bed 17 Private MD: ED Physician Nadya Lares HPI: 04/16 21:59 This 31 yrs old Male presents to ER via EMS with complaints of Suicidal sp3 Ideation, Left arm problem. 21:59 31-year-old male with history of hypertension, narcotic drug use, and left arm swelling sp3 and pain presents to the ED for suicidal ideation secondary to "life in general". Patient was seen 2 days ago by me for the left arm pain and swelling at which point he had a negative ultrasound for clot. Patient does not use IV drugs and only inhaled and oral forms. Today he is here more for generalized sinus depression due to his social situation. Patient has a 5-year-old son whom he is not able to regularly visit per his visitation rights. Patient was living with his parents but left about a week ago secondary to "fighting with them" at which point his drug use increased again. Today he wishes that "somebody would just take a gun and shoot him" as he does not want to do it himself. After talking to his parents they have jointly agreed to come here for evaluation. He has not had prior suicidal attempts in the past and has had thoughts before. Patient is not homicidal and does not hear voices or seeing things and has not had past psychosis. At this time he has no somatic symptoms other than his left arm including headache, neck pain, chest pain, shortness breath, abdominal pain, nausea, vomiting, diarrhea, rash, syncope, other swelling, fever, URI symptoms, any other ROS at this time.. Historical: - Allergies: 20:30 Ceclor; bb - Home Meds: 20:30 Unable to obtain [Active]; bb - PMHx: 20:30 Hypertension; bb - Immunization history:: Adult Immunizations up to date, Client reports having NOT received the Covid vaccine. - Social history:: Smoking status: Patient/guardian denies using tobacco, Stopped _ months ago [address], heroin. ROS: 22:02 Constitutional: Negative for fever, chills, and weight loss, Eyes: Negative for injury, sp3 pain, redness, and discharge, ENT: Negative for injury, pain, and discharge, Neck: Negative for injury, pain, and swelling, Cardiovascular: Negative for chest pain, palpitations, and edema, Respiratory: Negative for shortness of breath, cough, wheezing, and pleuritic chest pain, Abdomen/GI: Negative for abdominal pain, nausea, vomiting, diarrhea, and constipation, Back: Negative for injury and pain, Skin: Negative for injury, rash, and discoloration, Neuro: Negative for headache, weakness, numbness, tingling, and seizure, Allergy/Immunology: Negative for hives, rash, and allergies, Endocrine: Negative for neck swelling, polydipsia, polyuria, polyphagia, and marked weight changes. Exam: 22:03 Head/Face: Normocephalic, atraumatic. Eyes: Pupils equal round and reactive to light, sp3 extra-ocular motions intact. Lids and lashes normal. Conjunctiva and sclera are non-icteric and not injected. Cornea within normal limits. Periorbital areas with no swelling, redness, or edema. ENT: Nares patent. No nasal discharge, no septal abnormalities noted. External auditory canals are clear. Oropharynx with no redness, swelling, or masses, exudates, or evidence of obstruction, uvula midline. Mucous membranes moist. Neck: Trachea midline, no thyromegaly or masses palpated, and no cervical lymphadenopathy. Supple, full range of motion without nuchal rigidity, or vertebral point tenderness. No Meningismus. Chest/axilla: Normal chest wall appearance and motion. Nontender with no deformity. No lesions are appreciated. Cardiovascular: Regular rate and rhythm with a normal S1 and S2. No gallops, murmurs, or rubs. Normal PMI, no JVD. No pulse deficits. Respiratory: Lungs have equal breath sounds bilaterally, clear to auscultation and percussion. No rales, rhonchi or wheezes noted. No increased work of breathing, no retractions or nasal flaring. Abdomen/GI: Soft, non-tender, with normal bowel sounds. No distension or tympany. No guarding or rebound. No evidence of tenderness throughout. Back: No spinal tenderness. No costovertebral tenderness. Full range of motion. Neuro: Awake and alert, GCS 15, oriented to person, place, time, and situation. Cranial nerves II-XII grossly intact. Motor strength 5/5 in all extremities except his left upper extremity which is 4/5.. Sensory grossly intact. Cerebellar exam normal. Normal gait. 22:03 Constitutional: The patient appears Patient is in no acute distress but is disheveled and poorly kept. 22:03 Psych: Patient is positive for suicidal ideations but does not have a specific plan at this time. There are no homicidal ideations noted. Patient is not psychotic and is not responding to internal stimuli. Is resting comfortably without agitation or anxiety visible to the clinical staff.. 23:24 ECG was reviewed by the Attending Physician. EKG demonstrates normal sinus rhythm at 85 sp3 bpm with normal intervals, normal QRS, normal axis, normal ST/T-segment without evidence of ischemia. Vital Signs: 20:29 Weight 74.84 kg (R); Height 5 ft. 10 in. (177.80 cm) (R); Pain 3/10; bb 20:38 BP 159 / 110; Pulse 87; Resp 20; Temp 98.2(O); Pulse Ox 98% on R/A; Weight 74.84 kg; sl2 Height 5 ft. 10 in. (177.80 cm); 20:45 BP 150 / 102; Pulse 89; Resp 18; Pulse Ox 98% on R/A; cc4 04/17 08:25 BP 138 / 86; Pulse 85; Resp 18; Temp 98.4(O); Pulse Ox 99% on R/A; ss 17:46 BP 164 / 94; Pulse 87; Resp 17; Temp 98.2(O); Pulse Ox 100% on R/A; mh5 19:50 BP 149 / 72; Pulse 86; Resp 18; Temp 98.6(O); Pulse Ox 100% on R/A; cc4 04/18 07:46 BP 159 / 80; Pulse 86; Resp 16; Temp 97.6; Pulse Ox 100% on R/A; jt3 04/16 20:38 Body Mass Index 23.67 (74.84 kg, 177.80 cm) sl2 MDM: 04/16 20:45 Patient medically screened. sp3 22:05 Data reviewed: vital signs, nurses notes. ED course: 31-year-old male with suicidal sp3 ideation and continued left arm weakness for which she is already been evaluated for. At this time we will obtain toxicology work-up and have psych team evaluate patient. I had an extensive conversation with patient regarding drug use, extraction from his social network and suppliers, and reasons to live. Patient states that he would not ultimately take his own life secondary to his son and really just needs help "getting his life back together." Will consult psychiatric team for evaluation recommendations and disposition will be based on patient course and collaboration with them.. 04/17 12:17 Data reviewed: lab test result(s). Data interpreted: Pulse oximetry: on room air is 98 jr8 %. Interpretation: normal. Counseling: I had a detailed discussion with the patient and/or guardian regarding: the historical points, exam findings, and any diagnostic results supporting the discharge/admit diagnosis, lab results. 18:27 ED course: Patient is pending transfer which was initiated, I talked the patient and ma2 reevaluated him, vital signs within normal limits, no new symptoms. He is tired from waiting. I encouraged him to wait and get evaluated by psych. He agrees to stay. I will sign out this patient back to Dr. Haines, upcoming ED doctor. . 04/18 09:38 Special discussion: accepted by dr. Macario. ma2 04/16 20:44 Order name: Acetaminophen 3 04/16 20:44 Order name: Basic Metabolic Panel 3 04/16 20:44 Order name: CBC with Diff 3 04/16 20:44 Order name: ETOH Level; Complete Time: 05:37 sp3 04/16 20:44 Order name: Hepatic Function; Complete Time: 05:37 sp3 04/16 20:44 Order name: PT-INR; Complete Time: 05:37 sp3 04/16 20:44 Order name: Ptt, Activated; Complete Time: 05:37 sp3 04/16 20:44 Order name: Salicylate; Complete Time: 05:37 sp3 04/16 20:44 Order name: Urine Drug Screen; Complete Time: 05:37 sp3 04/16 20:44 Order name: Acetaminophen Level; Complete Time: 05:37 EDMS 04/16 20:44 Order name: Basic Metabolic Panel; Complete Time: 05:37 EDMS 04/16 20:45 Order name: CBC with Automated Diff; Complete Time: 05:37 EDMS 04/16 21:22 Order name: Urine Dipstick-Ancillary; Complete Time: 05:37 EDSC 04/16 23:57 Order name: COVID-19 (Coronavirus) Document "Date of Onset" if Symptomatic mw2 04/16 20:44 Order name: EKG; Complete Time: 20:45 sp3 04/16 20:44 Order name: EKG - Nurse/Tech; Complete Time: 22:32 sp3 04/16 20:44 Order name: IV Saline Lock; Complete Time: 21:06 sp3 04/16 20:44 Order name: Labs collected and sent; Complete Time: 21:06 3 04/16 20:44 Order name: Suicide Screening (Stamps); Complete Time: 22:32 sp3 04/16 20:44 Order name: Urine Dipstick-Ancillary (obtain specimen); Complete Time: 21:23 3 04/17 01:03 Order name: SARS-COV-2 RT PCR; Complete Time: 05:37 EDSC 04/17 07:57 Order name: Diet Finger Food; Complete Time: 07:57 bd 04/17 17:25 Order name: Diet Renal; Complete Time: 17:25 bd 04/17 17:25 Order name: Diet Finger Food; Complete Time: 17:25 bd Administered Medications: 04:50 Drug: XANax (alprazolam) Tablet 0.25 mg Route: PO; cc4 06:00 Follow up: Response: No adverse reaction; Marked relief of symptoms cc4 Disposition: 04/17 17:56 Co-signature as Attending Physician, Nadya Lares MD PA/CARTON CATCHER's history reviewed, ma2 patient interviewed, and examined. I agree with assessment and care plan and confirm the diagnosis (es) above. Disposition Summary: 04/17/21 17:56 Transfer Ordered Transfer Location: Other Acute Care Facility ma2 Reason: Higher level of care ma2 Condition: Stable ma2 Problem: new ma2 Symptoms: are unchanged ma2 Accepting Physician: Dr. Amirah Lopess(04/18/21 11:35) sl2 Diagnosis - Suicidal ideations ma2 Forms: - Medication Reconciliation Form ma2 - SBAR form ma2 Signatures: Dispatcher [employer] EDMS Franny Rivers RN RN Chito Mackenzie PA PA jr8 Nadya Lares MD MD ma2 Zuleima Aponte Setul, MD MD sp3 Clara Stephens RN RN cc4 Maxine Sotelo RN RN sl2 Corrections: (The following items were deleted from the chart) 01:03 04/16 23:58 CORONAVIRUS ordered. EDMS EDMS 04/18 11:26 11 17:56 [facility]2 04/18 11:35 11:26 Dr. Macario [facility] sl2
[2021-04-18] MEDS ORDERED: ALPRAZOLAM 0.25 MG TABLET ONE (04:51)
[2021-04-18 11:48] VITALS: O2SAT 100
[2021-04-18 11:51] VITALS: BP 159/80; TEMP 97.6
== END 2021-04-18 11:35 ==
LOC: ER 20:26
DX: R45.851 Suicidal ideations (principal); Z88.1 Allergy status to other antibiotic agents; I10 Essential (primary) hypertension; F15.90 Other stimulant use, unspecified, uncomplicated; Z20.822 Contact with and (suspected) exposure to COVID-19
CPT/HCPCS: 36415; 80048; 80076; 80307; 80320; 80329; 81003; 85025; 85610; 85730; 93005; 99285

== ENCOUNTER 2022-05-19 14:20 | Emergency (ER) | payer SELFPAY ==
--- NOTE | 2022-05-19 15:12 | ER ---
Nurse's Notes [facility] Name: Angelo Eden Age: 32 yrs Sex: Male : 1990 Arrival Date: 05/19/2022 Time: 14:22 Bed IW3 Private MD: Diagnosis: Intervertebral disc disorders with radiculopathy, lumbar region;Low back pain Presentation: 05/19 14:48 Chief complaint: Patient states: Right lower back pain - radiates down right leg. ld1 Stated, "I had herniated discs and had to have surgery 3-4 years ago.". Coronavirus screen: At this time, the client does not indicate any symptoms associated with coronavirus-19. Ebola Screen: No symptoms or risks identified at this time. Initial Sepsis Screen: Does the patient meet any 2 criteria? No. Patient's initial sepsis screen is negative. Does the patient have a suspected source of infection? No. Patient's initial sepsis screen is negative. Risk Assessment: Do you want to hurt yourself or someone else? Patient reports no desire to harm self or others. Onset of symptoms was May 19, 2022 at 14:49. 14:48 Method Of Arrival: Ambulatory ld1 14:48 Acuity: CANDACE 3 ld1 Triage Assessment: 14:49 General: Appears in no apparent distress. comfortable, Behavior is calm, cooperative, ld1 appropriate for age. Pain: Complains of pain in back Pain does not radiate. Pain currently is 5 out of 10 on a pain scale. at worst was 8 out of 10 on a pain scale. Quality of pain is described as throbbing. EENT: No signs and/or symptoms were reported regarding the EENT system. Neuro: Level of Consciousness is awake, alert, obeys commands, Oriented to person, place, time, situation, Appropriate for age. Cardiovascular: Capillary refill < 3 seconds Patient's skin is warm and dry. Respiratory: Airway is patent Respiratory effort is even, unlabored. GI: Abdomen is round non-distended. : No signs and/or symptoms were reported regarding the genitourinary system. Derm: No signs and/or symptoms reported regarding the dermatologic system. Musculoskeletal: No signs and/or symptoms reported regarding the musculoskeletal system. Historical: - Allergies: 14:49 Ceclor; ld1 - PMHx: 14:49 Hypertension; ld1 - PSHx: 14:49 Back surgery; ld1 14:54 discectomy; ld1 - Immunization history:: Adult Immunizations up to date, Client reports receiving the 2nd dose of the Covid vaccine. - Social history:: Smoking status: Patient reports the use of cigarette tobacco products, smokes one-half pack cigarettes per day, Patient uses alcohol, occasionally. Screenin:20 Abuse screen: Denies threats or abuse. Denies injuries from another. Nutritional ld1 screening: No deficits noted. Tuberculosis screening: No symptoms or risk factors identified. Fall Risk No fall in past 12 months (0 pts). Assessment: 15:20 Reassessment: See triage assessment. ld1 Vital Signs: 14:48 BP 173 / 102; Pulse 101; Resp 18; Temp 98.7(O); Pulse Ox 100% on R/A; Weight 99.79 kg; ld1 Height 5 ft. 11 in. (180.34 cm); Pain 5/10; 15:20 BP 169 / 99; Pulse 100; Resp 18; Pulse Ox 100% on R/A; ld1 14:48 Body Mass Index 30.68 (99.79 kg, 180.34 cm) ld1 ED Course: 14:22 Patient arrived in ED. rg4 14:49 Triage completed. ld1 14:49 Arm band placed on right wrist. ld1 14:51 Chito Adhikari PA is PHCP. jr8 14:51 Brendon Shafer DO is Attending Physician. jr8 15:11 Casey Mireles MD is Referral Physician. jr8 15:20 Noreen Gill, FLORINDA is Primary Nurse. ld1 15:20 Patient has correct armband on for positive identification. Call light in reach. Pulse ld1 ox on. NIBP on. Door closed. 15:20 No provider procedures requiring assistance completed. Patient did not have IV access ld1 during this emergency room visit. Administered Medications: No medications were administered Medication: 15:20 VIS not applicable for this client. ld1 Outcome: 15:11 Discharge ordered by . jr8 15:20 Discharged to home ambulatory, with family. ld1 15:20 Condition: stable 15:20 Discharge instructions given to patient, family, Instructed on discharge instructions, follow up and referral plans. medication usage, Demonstrated understanding of instructions, follow-up care, medications, Prescriptions given X 3. 15:24 Patient left the ED. ld1 Signatures: Chito Adhikari PA PA jr8 Yolanda Jones4 Noreen Gill RN RN ld1 Corrections: (The following items were deleted from the chart) 14:49 14:48 Pulse 101bpm; Resp 18bpm; Pulse Ox 100% RA; Temp 98.7F Oral; 99.79 kg; Height 5 ld1 ft. 11 in.; BMI: 30.6; Pain 5/10; ld1
[2022-05-19 15:30] VITALS: TEMP 98.7; O2SAT 100
[2022-05-19 15:31] VITALS: BP 169/99
--- NOTE | 2022-05-20 15:24 | EDPHYS ---
Physician Documentation [facility] Name: Angelo Eden Age: 32 yrs Sex: Male : 1990 Arrival Date: 05/19/2022 Time: 14:22 Bed IW3 Private MD: ED Physician Brendon Shafer HPI: 05/19 15:41 This 32 yrs old Male presents to ER via Ambulatory with complaints of Back Pain. jr8 15:41 The patient presents with pain that is acute, with no known mechanism of injury. The jr8 symptoms are located in the low back. Onset: The symptoms/episode began/occurred gradually. The pain radiates to the right leg. Associated signs and symptoms: The patient has no apparent associated signs or symptoms. The problem was sustained when bending over. Modifying factors: The patient symptoms are alleviated by nothing, the patient symptoms are aggravated by any movement. Severity of symptoms: At their worst the symptoms were moderate, in the emergency department the symptoms are unchanged. The patient has not experienced similar symptoms in the past. The patient has not recently seen a physician. 32-year-old male patient with a history of microdiscectomy of the lumbar spine. Stated that he always has minor back pain but over the past month or so has been increasing. Has become to the point over the last couple days that is intolerable. Has been taking large quantities of acetaminophen over the last day or so. Came to emergency room today as he could not tolerate the pain any longer.. Historical: - Allergies: 14:49 Ceclor; ld1 - PMHx: 14:49 Hypertension; ld1 - PSHx: 14:49 Back surgery; ld1 14:54 discectomy; ld1 - Immunization history:: Adult Immunizations up to date, Client reports receiving the 2nd dose of the Covid vaccine. - Social history:: Smoking status: Patient reports the use of cigarette tobacco products, smokes one-half pack cigarettes per day, Patient uses alcohol, occasionally. ROS: 15:41 Eyes: Negative for injury, pain, redness, and discharge, ENT: Negative for injury, jr8 pain, and discharge, Neck: Negative for injury, pain, and swelling, Cardiovascular: Negative for chest pain, palpitations, and edema, Respiratory: Negative for shortness of breath, cough, wheezing, and pleuritic chest pain, Abdomen/GI: Negative for abdominal pain, nausea, vomiting, diarrhea, and constipation, MS/Extremity: Negative for injury and deformity, Skin: Negative for injury, rash, and discoloration, Neuro: Negative for headache, weakness, numbness, tingling, and seizure. 15:41 Back: Positive for pain at rest, pain with movement, radiated pain. Exam: 15:41 Constitutional: This is a well developed, well nourished patient who is awake, alert, jr8 and in no acute distress. Cardiovascular: Regular rate and rhythm with a normal S1 and S2. No gallops, murmurs, or rubs. Normal PMI, no JVD. No pulse deficits. Respiratory: Lungs have equal breath sounds bilaterally, clear to auscultation and percussion. No rales, rhonchi or wheezes noted. No increased work of breathing, no retractions or nasal flaring. Abdomen/GI: Soft, non-tender, with normal bowel sounds. No distension or tympany. No guarding or rebound. No evidence of tenderness throughout. Skin: Warm, dry with normal turgor. Normal color with no rashes, no lesions, and no evidence of cellulitis. MS/ Extremity: Pulses equal, no cyanosis. Neurovascular intact. Full, normal range of motion. Neuro: Awake and alert, GCS 15, oriented to person, place, time, and situation. Cranial nerves II-XII grossly intact. Motor strength 5/5 in all extremities. Sensory grossly intact. Cerebellar exam normal. Normal gait. 15:41 Back: pain, that is moderate, of the right low back, ROM is painful, normal spinal alignment noted, CVA tenderness, is absent, muscle spasm, is not present. Vital Signs: 14:48 BP 173 / 102; Pulse 101; Resp 18; Temp 98.7(O); Pulse Ox 100% on R/A; Weight 99.79 kg; ld1 Height 5 ft. 11 in. (180.34 cm); Pain 5/10; 15:20 BP 169 / 99; Pulse 100; Resp 18; Pulse Ox 100% on R/A; ld1 14:48 Body Mass Index 30.68 (99.79 kg, 180.34 cm) ld1 MDM: 14:51 Patient medically screened. [facility] 15:41 Data reviewed: vital signs, nurses notes, and as a result, I will discharge patient. jr8 Data interpreted: Pulse oximetry: on room air is 100 %. Interpretation: normal. Counseling: I had a detailed discussion with the patient and/or guardian regarding: the historical points, exam findings, and any diagnostic results supporting the discharge/admit diagnosis, the need for outpatient follow up, a neurosurgeon, to return to the emergency department if symptoms worsen or persist or if there are any questions or concerns that arise at home. ED course: Patient stated that he has had a total of about fifteen 500 mg Acetaminophen pills throughout today. Patient based on this is under the toxic level of 10 g in last 24 hours or 200mg/kg in single ingestion. Advised patient that this is extremely dangerous and that he should abstain from all Tylenol based products for at least next 48-72 hours. That he needs to take the tylenol responsibly and per bottle recommendations which is not to exceed more than 4 g in 24 hours. Patient understood and would not do that any longer. Went home on NSAID and muscle relaxant . Administered Medications: No medications were administered Disposition: 18:25 Co-signature as Attending Physician, Brendon IGLESIAS was immediately available onsite ms3 in the emergency department for consultation in the care of the patient. Disposition Summary: 05/19/22 15:11 Discharge Ordered Location: Home jr8 Problem: new jr8 Symptoms: have improved jr8 Condition: Stable jr8 Diagnosis - Intervertebral disc disorders with radiculopathy, lumbar region jr8 - Low back pain jr8 Followup: jr8 - With: Casey Mireles MD - When: 2 - 3 days - Reason: Recheck today's complaints, Continuance of care, Re-evaluation by your physician Discharge Instructions: - Discharge Summary Sheet jr8 - Acute Back Pain, Adult jr8 - Herniated Disk jr8 - Musculoskeletal Pain jr8 - Heat Therapy jr8 Forms: - Medication Reconciliation Form jr8 - Thank You Letter jr8 - Antibiotic Education jr8 - Prescription Opioid Use jr8 Prescriptions: - Ibuprofen 800 mg Oral Tablet - take 1 tablet by ORAL route every 12 hours As needed take with food; 20 tablet; jr8 Refills: 0, Product Selection Permitted - Skelaxin 800 mg Oral Tablet - take 1 tablet by ORAL route every 8 hours As needed; 30 tablet; Refills: 0, jr8 Product Selection Permitted - Medrol (Ujan F) 4 mg Oral Tablets, Dose Pack - take 1 tablet by ORAL route as directed - follow package instructions; 1 jr8 packet; Refills: 0, Product Selection Permitted Signatures: Chito Adhikari PA PA jr8 Brendon Shafer DO DO ms3 Noreen Gill, RN RN ld1
== END 2022-05-19 15:24 | disposition home or self-care (01) ==
LOC: ER 14:20
DX: M51.16 Intervertebral disc disorders with radiculopathy, lumbar region (principal); F17.210 Nicotine dependence, cigarettes, uncomplicated; I10 Essential (primary) hypertension; Z88.1 Allergy status to other antibiotic agents
CPT/HCPCS: 99283

== ENCOUNTER 2022-10-05 23:12 | Emergency (ER) | payer BC, SELFPAY ==
--- OUTSIDE RECORDS SUMMARY | 2022-10-05 23:16 | XMS REPORT | Continuity of Care Document ---
:1990 Author Organization [facility] t Address [address] [place] [address] [place] [id number] Care Team Providers Name Role Phone PCP, PATIENT DOES NOT HAVE A Primary Care Physician UnavailWINNIE Noe Attending Clinician Unavailable Winnie Cat MD Attending Clinician Juwan Rodgers MD Attending Clinician JUWAN RODGERS Attending Clinician Unavailable Doctor Unassigned, [place] Attending Clinician Unavailable JUWAN RODGERS Admitting Clinician Unavailable Problems Condition Condition Condition Status Onset Resolution Last Treating Co mments Source Name Details Category Date Date Treatment Clinician Date No known No known Disease Unive rs active active ity of problems problems [facility] Allergies, Adverse Reactions, Alerts Allergy Allergy Status Severity Reaction(s) Onset Inactive Treating Comm ents Source Name Type Date Date Clinician NO KNOWN Drug Active Univers ALLERGIE Class ity of [facility] Social History Social Habit Start Date Stop Date Quantity Comments Source Exposure to 2022-06-15 2022-06-25 Not sure [facility] SARS-CoV-2 (event) 00:00:00 02:32:00 Medica l Branch Sex Ass[birth year] At [birth year] [facility] 00:00:00 00:00:00 Medical Branch Smoking Status Start Date Stop Date Source Tobacco smoking consumption Univ [facility] Medical unknown Branch Medications Ordered Filled Start Stop Current Ordering Indication Dosage Frequency Signature Comments Components Source Medication Medication Date Date Medication? Clinician (SIG) Name Name ondansetron 8mg 8 mg, Univ ers (ZOFRAN-ODT 06-25 Oral, ity of ) 10:15: 09:30 ONCE, 1 [place] disintegrat 00 :00 dose, On Medi reema ing tablet Thu Branch 8 mg 06/25/22 at 0415, Routine ibuprofen 2022- No 800mg 800 mg, Uni vers (IBU) 06-25 Oral, ity of tablet 800 09:30: 09:32 ONCE, 1 [place] as mg 00 :00 dose, On Medical Thu Branch 06/25/22 at 0330, EUGENIO ibuprofen Yes [id number] 800mg Take 1 U nivers 800 mg -18 tablet by ity of tablet 00:00: mouth [place] 00 every 8 Medical (eight) Branch hours as needed for Pain (scale 4-6). methocarbam Yes [id number] 750mg Take 1 Univers oL 750 mg -18 tablet by ity o f tablet 00:00: mouth [place] 00 every 6 Medical (six) Branch hours as needed for Pain (scale 7-10) (MUSCLE SPASM). ondansetron Yes [id number] 8mg Take 1 Univers (ZOFRAN) 8 18 tablet by ity of mg tablet 00:00: mouth [place] 00 every 8 Medical (eight) Branch hours as needed for Nausea and Vomiting (N/V). ketorolac 2022- No 30mg 30 mg, Unive rs (TORADOL) 06-10 Intramuscu ity of injection 08:30: 07:42 lar, ONCE, [place] 30 mg 00 :00 1 dose, On Thu06/10/22 Branch at 0230, EUGENIO predniSONE 2022- No 60mg 60 mg, Univ ers (DELTASONE) 06-10 Oral, ity of tablet 60 06:30: 07:39 ONCE, 1 [place] mg 00 :00 dose, On Thu06/10/22 Branch at 0030, EUGENIO cyclobenzap Yes [id number] 10mg Take 1 Univers rine 10 mg 1-03 tablet by ity of tablet 00:00: mouth in [place] 00 the Medical morning Branch and 1 tablet at noon and 1 tablet in the evening. predniSONE 2022-0 Yes [id number] 60mg Take 3 U nivers 20 mg 1-03 tablets by ity of tablet 00:00: mouth [place] 00 every Medical morning. Branch cyclobenzap 0 Yes [id number] 10mg Take 1 Univers rine 10 mg 1-03 tablet by ity of tablet 00:00: mouth in [place] 00 the Medical morning Branch and 1 tablet at noon and 1 tablet in the evening. predniSONE 2022-0 Yes [id number] 60mg Take 3 U nivers 20 mg 1-03 tablets by ity of tablet 00:00: mouth [place] 00 every Medical morning. Branch cyclobenzap 0 Yes [id number] 10mg Take 1 Univers rine 10 mg 1-03 tablet by ity of tablet 00:00: mouth in [place] 00 the Medical morning Branch and 1 tablet at noon and 1 tablet in the evening. predniSONE 2022-0 Yes [id number] 60mg Take 3 U nivers 20 mg 1-03 tablets by ity of tablet 00:00: mouth [place] 00 every Medical morning. Branch acetaminoph 2022- No [id number] 1{tbl} Take 1 U nivers en-codeine 06-10 tablet by ity of 300-30 mg 00:00: 05:59 mouth [place] tablet 00 :00 every 4 Medical (four) Branch hours as needed for Pain (scale 1-3) for up to 7 days. Indication s: acute pain acetaminoph 2022- No 4647 1{tbl} Take 1 U nivers en-codeine 06-1011 tablet by ity of 300-30 mg 00:00: 05:59 mouth [place] tablet 00 :00 every 4 Medical (four) Branch hours as needed for Pain (scale 1-3) for up to 7 days. Indication s: acute pain predniSONE 2017-0 Yes 50mg Take 1 Unive rs 50 mg 7-24 tablet by ity of tablet 00:00: mouth [place] 00 daily. Medical Branch hydrOXYzine 2017-0 Yes 25mg Take 1 Univ ers 25 mg 7-24 tablet by ity of tablet 00:00: mouth [place] 00 every 6 Medical (six) Branch hours. predniSONE 2018-0 Yes 50mg Take 1 Unive rs 50 mg 7-24 tablet by ity of tablet 00:00: mouth [place] 00 daily. Medical Branch hydrOXYzine 2017-0 Yes 25mg Take 1 Univ ers 25 mg 7-24 tablet by ity of tablet 00:00: mouth [place] 00 every 6 Medical (six) Branch hours. predniSONE 2018-0 Yes 50mg Take 1 Unive rs 50 mg 7-24 tablet by ity of tablet 00:00: mouth [place] 00 daily. Medical Branch hydrOXYzine 2018-0 Yes 25mg Take 1 Univ ers 25 mg 7-24 tablet by ity of tablet 00:00: mouth [place] 00 every 6 Medical (six) Branch hours. Vital Signs Vital Name Observation Time Observation Value Comments Source Systolic blood 2022-06-25 08:35:00 175 mm[Hg] [facility]iver [facility] Diastolic blood 2022-06-25 08:35:00 129 mm[Hg] Unive rsity of [facility] Heart rate 2022-06-25 08:35:00 92 /min Universi ty [facility] [place] [facility] Body temperature 2022-06-25 08:35:00 36.72 Charleen [facility] Respiratory rate 2022-06-25 08:35:00 20 /min [facility] Body height 2022-06-25 08:35:00 177.8 cm Universi ty [facility] [place] [facility] Body weight 2022-06-25 08:35:00 104.327 kg Universi ty [facility] [place] [facility] BMI 2022-06-25 08:35:00 33.00 kg/m2 [facility] Oxygen saturation in 2022-06-25 08:35:00 98 /min [facility] Arterial blood by [facility] Pulse oximetry Branch Systolic blood 2022-06-10 06:17:00 167 mm[Hg] Univer [facility] Diastolic blood 2022-06-10 06:17:00 116 mm[Hg] Unive [facility] Heart rate 2022-06-10 06:17:00 98 /min Universi ty [facility] [place] [facility] Body temperature 2022-06-10 06:17:00 37.5 Charleen [facility] Respiratory rate 2022-06-10 06:17:00 18 /min [facility] Body height 2022-06-10 06:17:00 177.8 cm Universi ty [facility] [place] [facility] Body weight 2022-06-10 06:17:00 56.7 kg [facility] BMI 2022-06-10 06:17:00 17.94 kg/m2 [facility] Oxygen saturation in 2022-06-10 06:17:00 100 /min University Arterial blood by [facility] Pulse oximetry Branch Procedures Procedure Date / Time Performing Clinician Source Performed CONSENT/REFUSAL FOR 2022-06-25 08:29:50 Doctor Nadia [facility] DIAGNOSIS AND TREATMENT [place] [facility] CT ABDOMEN PELVIS WO 2022-06-10 06:44:21 Juwan Rodgers [facility] CONTRAST [facility] EMERGENCY SERVICES 2022-06-10 06:01:00 Doctor Nadia, [facility] AGREEMENTS AND [place] [facility] AUTHORIZATIONS NOTICE OF PRIVACY 2022-06-10 05:51:32 Doctor Nadia, [facility] PRACTICES [place] [facility] Encounters Start End Encounter Admission Attending Care Care Encounter Source Date/Time Date/Time Type Type Clinicians Facility Department ID 2022-06-25 2022-06-25 Emergency X [facility] ERT [id number] Univers 02:39:00 03:32:00 WINNIE [facility] 2022-06-25 2022-06-25 [facility] [id number] Univers 02:39:00 03:32:00 Winnie ACOSTA [id number] ity of [place] [id number] [facility] [id number] [address] 2022-06-10 2022-06-10 Emergency [facility] [id number] Univers 00:20:00 02:06:00 Juwan ACOSTA [id number] ity of [place] [id number] [facility] [id number] [place] [address] Branch 2022-06-10 2022-06-10 Emergency X [facility] ERT [id number] Univers 00:20:00 02:06:00 JUWAN [facility] 2022-06-10 2022-06-10 Blas URBINA [id number] Univers 00:00:00 00:00:00 Only ARIN Zuniga [id number] ity of [place] [facility] [id number] [place] as [id number] [facility] 009 Branch Results This patient has no known results.
[2022-10-05] MEDS ORDERED: LORazepam 2 MG/ML VIAL ONE (23:58)
[2022-10-05] MEDS ORDERED: MAGNESIUM SULFATE 1 gm IVPB 1 GM/100 ML BAG IV ONE (23:59)
[2022-10-05] MEDS ORDERED: NA CHLORIDE 0.9% 2,000 ML ONE (23:59)
[2022-10-06 00:01] LABS: Absolute Lymphocytes (CBC) 1.4 K/uL (0.7-4.9); Hematocrit 38.1 % (39.6-49.0); Lymphocytes % 32.8 % (15.3-44.8); RBC Red Blood Cell Count 4.28 M/uL (4.33-5.43)
[2022-10-06 00:13] LABS: Protime INR 0.83
[2022-10-06 00:26] LABS: SARS-CoV-2 Antigen Rapid Res Negative (Negative)
[2022-10-06 00:30] LABS: ALT/SGPT 31 U/L (16-61); AST/SGOT 11 U/L (15-37); Albumin 3.4 g/dL (3.4-5.0); Alkaline Phosphatase 68 U/L (45-117); BUN Blood Urea Nitrogen 17 mg/dL (7-18); Bicarbonate 26 mEq/L (21-32); Bilirubin Total 0.2 mg/dL (0.2-1.0); Glomerular Filtration Rate 124 ml/min (=/>90); Glucose Level 121 mg/dL (74-106); Magnesium 2.4 mg/dL (1.6-2.4); Potassium 3.9 mEq/L (3.5-5.1); Protein, Total 6.8 g/dL (6.4-8.2); Sodium Level 138 mEq/L (136-145)
[2022-10-06 00:31] LABS: Bilirubin Direct < 0.1 mg/dL (0-0.2)
[2022-10-06 02:11] LABS: Barbiturates NEGATIVE (NEGATIVE); Benzodiazepines NEGATIVE (NEGATIVE); Cocaine NEGATIVE (NEGATIVE); METHAMPHETAM NEGATIVE (NEGATIVE); Methadone NEGATIVE (NEGATIVE); Opiates NEGATIVE (NEGATIVE); Phencyclidine NEGATIVE (NEGATIVE); THC Cannibis NEGATIVE (NEGATIVE)
--- NOTE | 2022-10-06 07:02 | EDPHYS ---
Physician Documentation [facility] Name: Angelo Eden Age: 32 yrs Sex: Male : 1990 Arrival Date: 10/05/2022 Time: 23:12 Bed 18 Private MD: ED Physician Eric Bradford HPI: 10/05 23:28 This 32 yrs old Male presents to ER via EMS with complaints of Overdose. cp 23:28 The patient presents to the emergency department after a known overdose, that was cp intentional. 23:28 Context: Method: the patient has a confirmed or suspected ingestion, Cyclobenzaprine 10 cp mg tablets, Time: 2 hour(s) ago, Extent: the original prescription was for 60 pills/capsules, there were 0 pills/capsules remaining in the container, the strength of the pills/capsules is 10 mg(s), the patient had a total ingestion of approximately 600 mg(s), the OD/poisoning occurred at at home, and was witnessed by a significant other, girlfriend, Psychiatric history: the patient has a known psychiatric disorder, previous attempt at suicide. 23:28 Associated signs and symptoms: Pertinent positives: decreased level of consciousness, cp Pertinent negatives: shortness of breath, vomiting, seizure. Historical: - Allergies: 23:23 Ceclor; lg3 - Home Meds: 23:23 Flexeril Oral 10 mg twice a day [Active]; lg3 - PMHx: 23:23 Hypertension; lg3 - PSHx: 23:23 back surgery; discectomy; lg3 - Immunization history:: Adult Immunizations unknown. - Social history:: Smoking status: unknown. ROS: 23:30 Constitutional: Negative for body aches, fever. cp 23:30 Cardiovascular: Negative for chest pain. cp 23:30 Respiratory: Negative for shortness of breath, wheezing. 23:30 Abdomen/GI: Negative for abdominal pain, vomiting, diarrhea, constipation. 23:30 Neuro: Positive for altered mental status. 23:30 Psych: Positive for suicide gesture. 23:30 Unable to obtain ROS due to altered mental status. Exam: 23:27 ECG was reviewed by the Attending Physician. cp 23:35 Constitutional: The patient appears non-diaphoretic, well developed, well nourished, cp unkempt. 23:35 Head/Face: Normocephalic, atraumatic. cp 23:35 Eyes: Periorbital structures: appear normal, Conjunctiva: normal, no exudate, no injection, Sclera: no appreciated abnormality, Lids and lashes: appear normal, bilaterally. 23:35 ENT: External ear(s): are unremarkable, Nose: is normal, Mouth: Lips: dry, Oral mucosa: dry, Posterior pharynx: Airway: no evidence of obstruction, patent, swelling, is not appreciated. 23:35 Neck: ROM/movement: is normal, is supple, without pain, no range of motions cp limitations, no nuchal rigidity. 23:35 Chest/axilla: Inspection: normal, Palpation: is normal, no crepitus, no tenderness. 23:35 Cardiovascular: Rate: tachycardic, Rhythm: regular, Edema: is not appreciated, JVD: is not appreciated. 23:35 Respiratory: the patient does not display signs of respiratory distress, Respirations: normal, no use of accessory muscles, no retractions, labored breathing, is not present, Breath sounds: are clear throughout, no decreased breath sounds, no stridor, no wheezing. 23:35 Abdomen/GI: Inspection: abdomen appears normal, Bowel sounds: active, all quadrants, Palpation: abdomen is soft and non-tender, in all quadrants. 23:35 Musculoskeletal/extremity: Exam is negative for decreased range of motion, deformity, injury. 23:35 Skin: no rash present. 23:35 Neuro: Orientation: to person, place, situation, Mentation: responsive to voice able to follow commands, somnolent, Motor: moves all fours, strength is normal, Sensation: is normal. Vital Signs: 23:18 BP 172 / 111; Pulse 116; Resp 20 S; Temp 98.2; Pulse Ox 98% on R/A; lg3 23:18 Weight 81.65 kg (R); Height 5 ft. 11 in. (R); lg3 05/01 00:00 BP 130 / 92; Pulse 121; Resp 16 S; Pulse Ox 99% on R/A; lg3 01:00 BP 105 / 63; Pulse 90; Resp 16 S; Pulse Ox 100% on R/A; lg3 02:00 BP 117 / 77; Pulse 88; Resp 15 S; Pulse Ox 100% on R/A; lg3 03:00 BP 131 / 85; Pulse 84; Resp 16 S; Pulse Ox 99% on R/A; lg3 04:00 BP 127 / 82; Pulse 86; Resp 16 S; Pulse Ox 100% on R/A; lg3 06:21 BP 140 / 92; Pulse 76; Resp 15; Pulse Ox 100% on R/A; lg3 07:20 BP 139 / 93; Pulse 83; Resp 16 S; Pulse Ox 100% on R/A; Pain 0/10; kc6 09:10 BP 122 / 69; Pulse 87; Resp 15 S; Pulse Ox 100% on R/A; kc6 10:56 BP 135 / 87; Pulse 111; Resp 19 S; Pulse Ox 100% on R/A; kc6 12:50 BP 159 / 105; Pulse 87; Resp 18 S; Pulse Ox 100% on R/A; kc6 15:16 BP 126 / 72; Pulse 96; Resp 16 S; Pulse Ox 100% on R/A; kc6 19:05 BP 125 / 70; Pulse 98; Resp 20 S; Pulse Ox 100% on R/A; ha1 10/05 23:18 Body Mass Index 25.10 (81.65 kg, 180.34 cm) lg3 07:20 Pain Scale: Adult kc6 MDM: 10/05 23:30 Differential diagnosis: polypharmacy, over medication, closed head injury, intracranial cp hemorrhage. 23:32 Patient medically screened. sp4 10/06 01:35 Consideration of Admission/Observation Escalation of care including cp admission/observation considered. 01:35 Historians other than the Patient: EMS: gives HPI. Response to treatment: the patient's cp symptoms have mildly improved after treatment. Transition of care: After a detail discussion of the patient's case, care is transferred to Eric Brdaford MD. 05:50 Differential Diagnosis altered mental status, sepsis. Data reviewed: vital signs, sp4 nurses notes, EMS record, old medical records, lab test result(s), EKG. ED course: Patient currently is awaiting to sober up from Flexeril overdose. . 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 Able to have conversation, but somnolent. Plan is to medically clear and transfer to psychiatric facility. Obtaining KELIN given seriousness of attempt and multiple attempts to harm himself in past. Not requiring any oxygen or support. . 10/05 23:26 Order name: Acetaminophen; Complete Time: : lg3 10/06 01:31 Interpretation: Abnormal: ACETA 6.7. cp 10/05 23:26 Order name: BMP; Complete Time: : lg3 10/06 01:32 Interpretation: Normal except: CL 110; GLUC 121. cp 10/05 23:26 Order name: CBC with Diff; Complete Time: : lg3 10/06 01:32 Interpretation: Normal except: WBC 4.20; RBC 4.28; HGB 12.7; HCT 38.1; MPV 7.0. cp 10/05 23:26 Order name: Ethanol; Complete Time: lg3 10/06 01:32 Interpretation: Reviewed. cp 10/05 23:26 Order name: Hepatic Function; Complete Time: lg3 10/06 01:32 Interpretation: Reviewed. cp 10/05 23:26 Order name: Protime (+inr); Complete Time: lg3 10/06 01:32 Interpretation: Reviewed. cp 10/05 23:26 Order name: Ptt, Activated; Complete Time: 3 10/05 23:26 Order name: SARS-COV-2 Antigen Rapid; Complete Time: lg3 10/05 23:26 Order name: Salicylate; Complete Time: 3 10/06 01:32 Interpretation: Reviewed. cp 10/05 23:26 Order name: Urine Drug Screen; Complete Time: 04:08 3 10/05 23:26 Order name: Magnesium; Complete Time: lg3 10/06 01:33 Interpretation: Reviewed. cp 10/06 02:08 Order name: Acetaminophen; Complete Time: 04:08 sp4 10/05 23:54 Order name: CT Head Brain wo Cont cp 10/05 23:26 Order name: EKG; Complete Time: 23:27 lg3 10/06 07:23 Order name: Diet Finger Food; Complete Time: 07:24 kc6 10/06 09:12 Order name: EKG Electrocardiogram EDMS 10/05 23:26 Order name: EKG - Nurse/Tech; Complete Time: 23:28 lg3 10/05 23:26 Order name: IV Saline Lock; Complete Time: 23:28 3 10/05 23:26 Order name: Labs collected and sent; Complete Time: 23:28 3 10/05 23:26 Order name: O2 Per Protocol; Complete Time: 23:28 3 10/05 23:26 Order name: O2 Sat Monitoring; Complete Time: 23:28 3 10/05 23:26 Order name: Suicide Screening ([place]); Complete Time: 23:28 3 10/06 01:31 Order name: EKG - Nurse/Tech; Complete Time: 02:34 cp EC/30 23:27 Rate is 113 beats/min. Rhythm is regular. TN interval is normal. QRS interval is cp normal. QT interval is normal. T waves are Inverted in lead aVR. Interpreted by me. Reviewed by me. Administered Medications: 23:56 Drug: Magnesium Sulfate IVPB 1 grams Route: IVPB; Infused Over: 1 hrs; Site: right lg3 antecubital; 10/06 06:47 Follow up: Response: No adverse reaction; IV Status: Completed infusion; IV Intake: lg3 250ml 10/05 23:56 Drug: NS 0.9% IV 1000 ml Route: IV; Rate: 1 bolus; Site: right antecubital; [facility] 10/06 06:47 Follow up: IV Status: Completed infusion; IV Intake: 1000ml 3 10/05 23:56 Drug: NS 0.9% IV 1000 ml Route: IV; Rate: 1 bolus; Site: right antecubital; 3 10/06 06:47 Follow up: IV Status: Completed infusion; IV Intake: 1000ml 3 06:47 Not Given (Physician Discretion): Ativan IVP 1 mg IVP once lg3 Disposition: 05:50 Co-signature as Attending Physician, Eric Bradford MD I agree with the assessment sp4 and plan of care. I reviewed the patient's care provided by Advanced Practice Provider \T\ agree w/ the diagnosis \T\ care plan. I personally saw the pt \T\ performed a substantive portion of the visit, incldng all aspects of the (History/Exam/Medical Decision Making). Disposition Summary: 10/06/22 07:01 Transfer Ordered Transfer Location: [facility] Facility sp4 Reason: Higher level of care sp4 Condition: Stable sp4 Problem: new sp4 Symptoms: have improved sp4 Accepting Physician: Accepting psychiatrist (10/06/22 21:08) ha1 Diagnosis - Overdose Flexeril, suicide attempt, acute depression, medication overdose sp4 intentional Forms: - Medication Reconciliation Form sp4 - SBAR form sp4 Signatures: Dispatcher [employer] EDMS Ronaldo Real MD MD rn Sandro Harris, PA PA cp Krystal Jorge RN RN 3 Dahlia Lowe RN RN ha1 Eric Bradford MD MD sp4 Corrections: (The following items were deleted from the chart) 21:08 07:01 Accepting psychiatrist sp4 ha1 10/07 18:14 10/05 23:28 This 32 yrs old Male presents to ER via EMS with complaints of cp HTN. sp4 10/07 18:14 10/05 23:28 Context: Method: the patient has a confirmed or suspected ingestion, cp Cyclobenzaprine 10 mg tablets, Time: 2 hour(s) ago, Extent: cp 10/07 18:14 10/06 05:51 Constitutional: Negative for fever, chills, and weight loss, positive for cp Flexeril overdose sp4
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
--- NOTE | 2022-10-06 12:38 | EKG ---
Test Date: 2022-10-05 Test Time: 23:22:35 Senior [employer] Consultant: ZBIGNIEW MEASUREMENT RESULTS: Intervals: Rate: 113 MT: 140 QRSD: 94 QT: 358 QTc: 491 [place]: P: 65 MT: 140 QRS: 87 T: 42 INTERPRETIVE STATEMENTS: Sinus tachycardia Otherwise normal ECG Compared to ECG 04/16/2021 21:33:55 Sinus rhythm no longer present Electronically Signed On 10-06-22 12:37:02 CDT by Walker Davis
--- NOTE | 2022-10-06 12:38 | EKG ---
Test Date: 2022-10-06 Test Time: 02:08:48 Core Shaper Top: ZBIGNIEW MEASUREMENT RESULTS: Intervals: Rate: 98 WV: 148 QRSD: 94 QT: 378 QTc: 482 [place]: P: 75 WV: 148 QRS: 84 T: 73 INTERPRETIVE STATEMENTS: Normal sinus rhythm Prolonged QT Abnormal ECG Electronically Signed On 10-06-22 12:37:01 CDT by Walker Davis
--- NOTE | 2022-10-06 13:46 | RAD REPORT ---
EXAM DESCRIPTION: CT - Head Brain Wo Cont - 10/06/2022 6:38 am CLINICAL HISTORY: 32 years Male MENTAL STATUS CHANGE COMPARISON: None TECHNIQUE: Contiguous axial images of the brain were obtained without the administration of intraven ous contrast.This exam was performed according to our departmental dose-optimization program which in cludes use of Automated Exposure Control, adjustment of the mA and/or kV according to patient size an d/or use of iterative reconstruction technique. DLP: 924 mGy*cm FINDINGS: Brain: No acute intracranial hemorrhage. No extra-axial collection. No mass effect or conor iation. Ventricles: Within normal limits in size. Globes and orbits: No acute abnormality. Bones: No acute osseous finding Paranasal sinuses: Paranasal sinuses are clear. Mastoid air cells: Well pneumatized. Soft tissues: Within normal limits IMPRESSION: No acute intracranial abnormality. Electronically signed by: Tirso Arana DO 10/06/2022 1:04 AM CDT Due to temporary technical issues with the PACS/Fluency reporting system, reports are being signed by the in house radiologist without review as a courtesy to ensure prompt reporting. The interpreting r adiologist is fully responsible for the content of the report.
[2022-10-06] MEDS ORDERED: MORPHINE 4 MG/ML SYR ONE (14:34)
[2022-10-06] MEDS ORDERED: NA CHLORIDE 0.9% 1,000 ML ONE (14:35)
[2022-10-06] MEDS ORDERED: ONDANSETRON 4 MG/2 ML VIAL ONE (14:35)
[2022-10-06] MEDS ORDERED: TRAMADOL HCL 50 MG TAB ONE (18:45)
[2022-10-06 21:58] VITALS: TEMP 98.2
[2022-10-06 22:05] VITALS: O2SAT 100
[2022-10-06 22:12] VITALS: BP 126/72
== END 2022-10-06 21:08 ==
LOC: ER 23:12
DX: T48.1X2A Poisoning by skeletal muscle relaxants [neuromuscular blocking agents], intentional self-harm, initial encounter (principal); F32.A Depression, unspecified; I10 Essential (primary) hypertension; Z20.822 Contact with and (suspected) exposure to COVID-19; Z88.8 Allergy status to other drugs, medicaments and biological substances
CPT/HCPCS: 96365; 93005 ×2; 85025; 80048; 36415; 83735; 85610; 80076; 85730; 80307; 70450; 99285; 96366; 87811; J3475; J2405; J7030 ×2; G0480 ×4